=== PATIENT | female | born 1945 ===

== ENCOUNTER 2016-12-05 08:30 | Outpatient (RCR) | payer OTHER | END 2016-12-18 | disposition home or self-care (01) | LOC: PTY 08:30 | PROVIDERS: ATTEND Internal Medicine | DX: M25.561 Pain in right knee (principal); M25.562 Pain in left knee; M19.90 Unspecified osteoarthritis, unspecified site; R53.1 Weakness ==

== ENCOUNTER 2016-12-23 10:45 | Outpatient (RCR) | payer OTHER | END 2017-01-18 | disposition home or self-care (01) | LOC: PTY 10:45 | PROVIDERS: ATTEND Internal Medicine | DX: M25.561 Pain in right knee (principal); M25.562 Pain in left knee ==

== ENCOUNTER 2017-01-20 09:45 | Outpatient (RCR) | payer OTHER | END 2017-02-17 | disposition home or self-care (01) | LOC: PTY 09:45 | PROVIDERS: ATTEND Internal Medicine | DX: M25.561 Pain in right knee (principal); M25.562 Pain in left knee ==

== ENCOUNTER 2017-03-01 09:38 | Outpatient (RCR) | payer OTHER | END 2017-03-20 | disposition home or self-care (01) | LOC: PTY 09:38 | PROVIDERS: ATTEND Internal Medicine | DX: M25.561 Pain in right knee (principal); M25.562 Pain in left knee; G89.29 Other chronic pain ==

== ENCOUNTER 2017-03-29 09:00 | Outpatient (RCR) | payer OTHER | END 2017-04-20 | disposition home or self-care (01) | LOC: PTY 09:00 | PROVIDERS: ATTEND Internal Medicine | DX: M25.561 Pain in right knee (principal); M25.562 Pain in left knee ==